=== PATIENT | female | born 1960 | race Caucasian/White ===

== ENCOUNTER 2018-02-06 21:36 | Emergency (ER) | payer BC, OTHER ==
[2018-02-06] MEDS ORDERED: Sodium Chloride 0.9% 10 ML Syringe FLUSH PRN (21:53)
[2018-02-06 22:34] LABS: CHLORIDE,CL 106 mmol/L (98-107); SODIUM,NA 143 mmol/L (136-145)
[2018-02-06] MEDS ORDERED: Ketorolac 30 MG/ML SDV IVPUSH ONE (22:45)
--- NOTE | 2018-02-06 22:58 | EDM.PDOC ---
ED HPI GENERAL MEDICAL PROBLEM - General Chief Complaint: Abdominal Pain Stated Complaint: back pain, abdominal pain Time Seen by Provider: 02/06/18 21:38 Source of Information: Reports: Patient, Family, RN, RN Notes Reviewed History Limitations: Reports: No Limitations - History of Present Illness INITIAL COMMENTS - FREE TEXT/NARRATIVE: Patient presents to the ED at [facility] complaining of bilateral low back pain, low pelvic pain that started earlier this morning. Patient denies any injury or trauma to the back. Patient states she tried drinking warm and apple cider vinegar, which did not help. She then tried taking 3 Advil around 7pm tonight, with minimal relief. She denies any UTI symptoms. She states she has a BM daily. Today her stool was loose. She has also tried walking off her pain, but this did not help either. She denies any chest pain or SOB. It is very difficult for her to sit. No recent abdominal surgeries. 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: Other (see below) (See HPI) Abdominal Pain Score (Numeric/FACES): 8 - Related Data Allergies Allergy/AdvReac Type Severity Reaction Status Date / Time Penicillins Allergy Hives Verified 02/06/18 21:54 Home Meds: Home Meds Diltiazem HCl [Diltiazem 24Hr ER] 1 tab PO DAILY 02/06/18 [History] Metoprolol Succinate 1 tab PO DAILY 02/06/18 [History] Valsartan/Hydrochlorothiazide [Valsartan-Hctz 160-25 mg Tab] 1 each PO DAILY [History] Past Medical History Cardiovascular History: Reports: Hypertension Social & Family History - Tobacco Use Smoking Status *Q: Never Smoker ED ROS GENERAL - Review of Systems Review Of Systems: See Below Constitutional: Denies: Fever, Chills, Weakness Respiratory: Denies: Shortness of Breath, Cough Cardiovascular: Denies: Chest Pain, Palpitations GI/Abdominal: Reports: Abdominal Pain. Denies: Diarrhea, Nausea, Vomiting : Reports: Pain Musculoskeletal: Reports: Back Pain. Denies: Muscle Pain, Muscle Stiffness Skin: Reports: No Symptoms Neurological: Denies: Dizziness, Headache, Numbness, Paresthesia, Tingling ED EXAM, GI/ABD - Physical Exam Exam: See Below Exam Limited By: No Limitations General Appearance: Alert, No Apparent Distress Head: Atraumatic, Normocephalic Respiratory/Chest: No Respiratory Distress, Lungs Clear, Normal Breath Sounds Cardiovascular: Normal Peripheral Pulses, Regular Rate, Rhythm GI/Abdominal Exam: Soft, Tender (lower bilateral pelvis), Abnormal Bowel Sounds (Hypoactive) Back Exam: Normal Inspection Neurological: Alert, Oriented Skin Exam: Warm, Dry, Intact, Normal Color Course - Vital Signs Last Recorded V/S: Last Vital Signs Temp 37.3 C 02/06/18 21:51 Pulse 123 H 02/06/18 21:51 Resp 18 02/06/18 21:51 BP 185/107 H 02/06/18 23:13 Pulse Ox 96 02/06/18 21:51 - Orders/Labs/Meds Orders: Active Orders 24 hr Category Date Time Status Abdomen Pelvis wo Cont [CT] Stat Exams 02/06/18 22:32 Taken UA W/MICROSCOPIC [URIN] Stat Lab 02/06/18 22:17 Ordered Sodium Chloride 0.9% [Saline Flush] Med 02/06/18 21:53 Active 10 ml FLUSH ASDIRECTED PRN Peripheral IV Insertion Adult [OM.PC] Routine Oth 02/06/18 21:53 Ordered Medication Orders Sodium Chloride (Saline Flush) 10 ml FLUSH ASDIRECTED PRN PRN Reason: Keep Vein Open Last Admin: 02/06/18 22:49 Dose: 10 ml Labs: Laboratory Tests 02/06/18 02/06/18 02/06/18 Range/Units 22:04 22:04 22:17 WBC 10.6 H (4.0-10.0) x10^3/uL RBC 5.03 (4.00-5.50) x10^6/uL Hgb 14.4 (12.0-16.0) g/dL Hct 43.9 (33.0-47.0) % MCV 87.3 (78.0-93.0) fL MCH 28.6 (26.0-32.0) pg MCHC 32.8 (32.0-36.0) g/dL RDW Coeff of Farrah 13.1 (10.0-15.0) % Plt Count 237 (130-400) x10^3/uL Neut % (Auto) 83.3 H (50.0-80.0) % Lymph % (Auto) 9.6 L (25.0-50.0) % [place] % (Auto) 4.6 (2.0-11.0) % Eos % (Auto) 2.1 (0.0-4.0) % Baso % (Auto) 0.4 (0.2-1.2) % Sodium 143 (136-145) mmol/L Potassium 3.2 L (3.5-5.1) mmol/L Chloride 106 (98-107) mmol/L Carbon Dioxide 24 (21-32) mmol/L Anion Gap 16.2 (10-20) mmol/L BUN 8 (7-18) mg/dL Creatinine 0.8 (0.55-1.02) mg/dL Est Cr Clr Drug Dosing TNP Estimated GFR (MDRD) > 60 Glucose 137 H (74-106) mg/dL Calcium 8.1 L (8.5-10.1) mg/dL Corrected Calcium 8.58 (8.5-10.1) mg/dL Total Bilirubin 0.5 (0.2-1.0) mg/dL AST 20 (15-37) U/L ALT 36 (14-59) U/L Alkaline Phosphatase 117 H (46-116) U/L Total Protein 7.4 (6.4-8.2) g/dL Albumin 3.4 (3.4-5.0) g/dL Globulin 4.0 Albumin/Globulin Ratio 0.85 Amylase 34 (25-115) U/L Lipase 98 (73-393) U/L Urine Color Yellow (YELLOW) Urine Appearance Clear (CLEAR) Urine pH 7.0 (5.0-8.0) Ur Specific [place] 1.020 Urine Protein 30 H (NEGATIVE) mg/dL Urine Glucose (UA) Negative (NEGATIVE) mg/dL Urine Ketones Negative (NEGATIVE) mg/dL Urine Occult Blood Trace-intact H (NEGATIVE) Urine Nitrite Negative (NEGATIVE) Urine Bilirubin Negative (NEGATIVE) Urine Urobilinogen 0.2 (0.2) EU/dL Ur Leukocyte Esterase Negative (NEGATIVE) Urine RBC 0-5 (NOT SEEN) /HPF Urine WBC 0-5 (NOT SEEN) /HPF Ur Squamous Epith Cells Few H (NEGATIVE) /HPF Urine Bacteria Not seen (NEGATIVE) /HPF Urine Mucus Rare H (NEGATIVE) /LPF Meds: Medications Generic Name Dose Route Start Last Admin Trade Name Candi PRN Reason Stop Dose Admin Sodium Chloride 10 ml 02/06/18 21:53 02/06/18 22:49 Saline Flush FLUSH 10 ml ASDIRECTED PRN Administration Keep Vein Open Discontinued Medications Generic Name Dose Route Start Last Admin Trade Name Freq PRN Reason Stop Dose Admin Ketorolac Tromethamine 30 mg 02/06/18 22:45 02/06/18 22:49 Toradol IVPUSH 02/06/18 22:46 30 mg ONETIME ONE Administration - Radiology Interpretation Free Text/Narrative:: CT Abd/Pelvis: Left sided peripelvic renal cysts Bos[place] 1; No evidence for hydronephrosis or left ureteral lithiasis See scanned report in EMR CT Results Date: 02/06/18 CT Results Time: 23:21 Departure - Departure Time of Disposition: 23:31 Disposition: Home, Self-Care 01 Condition: Good Clinical Impression: Pelvic pain Back pain Qualifiers: Back pain location: low back pain Chronicity: acute Back pain laterality: bilateral Sciatica presence: without sciatica Qualified Code(s): M54.5 - Low back pain - Discharge Information Instructions: Pelvic Pain, Female, Abdominal Pain, Adult, Acute Pain, Adult, Acetaminophen; Hydrocodone tablets or capsules Referrals: Chaya Moody DO [Primary Care Provider] - Forms: ED Department Discharge Additional Instructions: 1. Stay well hydrated and rest 2. Take pain medication sparingly, it can make you very drowsy 3. Followup with your PCP this week for a recheck and further evaluation 4. Call us for any questions/concerns - Problem List Review Problem List Initiated/Reviewed/Updated: Yes - My Orders Last 24 Hours: My Active Orders 02/06/18 21:53 Sodium Chloride 0.9% [Saline Flush] 10 ml FLUSH ASDIRECTED PRN Peripheral IV Insertion Adult [OM.PC] Routine 02/06/18 22:17 UA W/MICROSCOPIC [URIN] Stat 02/06/18 22:32 Abdomen Pelvis wo Cont [CT] Stat - Assessment/Plan Last 24 Hours: My Active Orders 02/06/18 21:53 Sodium Chloride 0.9% [Saline Flush] 10 ml FLUSH ASDIRECTED PRN Peripheral IV Insertion Adult [OM.PC] Routine 02/06/18 22:17 UA W/MICROSCOPIC [URIN] Stat 02/06/18 22:32 Abdomen Pelvis wo Cont [CT] Stat Assessment:: Abdominal and pelvic pain of unknown etiology Plan: Labs and CT scan discussed with patient. No etiology found for pains current symptoms. Recommend followup with PCP for further workup and eval. Patient agrees with POC.
[2018-02-06] MEDS ORDERED: Take Home: Acetaminophen/HYDROcodone 325-5 MG, 5 Tab Pack PO ONE (23:33)
== END 2018-02-06 23:40 | disposition home or self-care (01) ==
LOC: VM.ED 21:36
DX: M54.5 Low back pain (principal); R10.2 Pelvic and perineal pain; Z88.0 Allergy status to penicillin; Z79.899 Other long term (current) drug therapy
CPT/HCPCS: 36415; 74176; 80053; 81001; 82150; 83690; 85025; 96374; 99284; A9270; J1885; J7050